=== PATIENT | male | born 1985 | race American Indian/Alaskan Native ===

== ENCOUNTER 2020-08-25 03:40 | Emergency (ER) | payer OTHER ==
[2020-08-25 03:49] VITALS: BP 110/62
--- NOTE | 2020-08-25 04:00 | Emergency Department Report ---
ED General Adult HPI - General Chief complaint: Medical Clearance Stated complaint: MEDICAL CLEARANCE Time Seen by Provider: 08/25/20 03:54 Source: patient, police Mode of arrival: Ambulatory Limitations: No Limitations, Language Barrier - History of Present Illness Initial comments: 34-year-old -[place] male reports having had some drinks tonight presents emerged department via the police department. States while he was then taken them blood pressure was checked and was found to be 184 over the 60s. That time reports no chest pain, palpitations, nausea vomiting, headache Radiation: non-radiation Consistency: constant Improves with: none Worsens with: none Associated Symptoms: denies: confusion, chest pain, cough, rash, syncope - Related Data Previous Rx's Medication Instructions Recorded Last Taken Type Hydrocodone Bit/Acetaminophen 1 tab PO Q6H PRN #16 tablet 03/09/13 Unknown Rx [Lortab 10-500 mg] Allergies Allergy/AdvReac Type Severity Reaction Status Date / Time No Known Allergies Allergy Unverified 03/09/13 04:28 ED Review of Systems ROS: Stated complaint: MEDICAL CLEARANCE Other details as noted in HPI ED Past Medical Hx - Past Medical History Previous Medical History?: No - Surgical History Past Surgical History?: No - Social History Smoking Status: Current Every Day Smoker Substance Use Type: Alcohol - Medications Home Medications: Home Medications Medication Instructions Recorded Confirmed Last Taken Type Hydrocodone Bit/Acetaminophen 1 tab PO Q6H PRN #16 tablet 03/09/13 Unknown Rx [Lortab 10-500 mg] ED Physical Exam - General Limitations: No Limitations, Language Barrier General appearance: alert, in no apparent distress, appears intoxicated (Has been uneventful but no acute distress response to questions correctly) - Head Head exam: Present: atraumatic, normocephalic - Eye Eye exam: Present: normal appearance, PERRL, EOMI Pupils: Present: normal accommodation - ENT ENT exam: Present: normal exam, normal orophraynx, mucous membranes moist, TM's normal bilaterally - Neck Neck exam: Present: normal inspection, full ROM - Respiratory Respiratory exam: Present: normal lung sounds bilaterally. Absent: respiratory distress, wheezes, rales, rhonchi, chest wall tenderness, accessory muscle use - Cardiovascular Cardiovascular Exam: Present: regular rate, normal rhythm. Absent: systolic murmur, diastolic murmur, rubs, gallop - GI/Abdominal GI/Abdominal exam: Present: soft, normal bowel sounds - Rectal Rectal exam: Present: deferred - Extremities Exam Extremities exam: Present: normal inspection - Back Exam Back exam: Present: normal inspection - Neurological Exam Neurological exam: Present: alert, oriented X3 - Psychiatric Psychiatric exam: Present: normal affect, normal mood - Skin Skin exam: Present: warm, dry, intact, normal color. Absent: rash ED Course Vital Signs 08/25/20 03:47 Temperature 97.9 F Pulse Rate 87 Respiratory 18 Rate Blood Pressure 110/62 O2 Sat by Pulse 100 Oximetry ED Medical Decision Making - Medical Decision Making 34-year-old male whom I am evaluating the first time presents to the ED for evaluation of reported hypotension. Blood pressure and vital signs were stable while in the emergency department. Patient reports having had alcohol tonight is obviously under the influence but able to sit up and stand under his own power and speaks in full sentences. Reports no chest pain or palpitations, no head trauma. Critical care attestation.: If time is entered above; I have spent that time in minutes in the direct care of this critically ill patient, excluding procedure time. ED Disposition Clinical Impression: Medical clearance for incarceration, H/O ETOH abuse Disposition: DC-01 TO HOME OR SELFCARE Is pt being admited?: No Does the pt Need Aspirin: No Condition: Stable Instructions: Medical Screening Exam Referrals: [facility] [Provider Group] - 3-5 Days
== END 2020-08-25 04:45 | disposition home or self-care (01) ==
LOC: ED 03:40
DX: F10.10 Alcohol abuse, uncomplicated (principal); F17.200 Nicotine dependence, unspecified, uncomplicated; Z79.899 Other long term (current) drug therapy
CPT/HCPCS: 99282